=== PATIENT | female | born 1995 | race Caucasian/White ===

== ENCOUNTER 2017-12-08 01:20 | Emergency (ER) | payer BC, OTHER ==
[~2017-12-08] VITALS: Ht 162.6 cm; Wt 59.0 kg
--- NOTE | ~2017-12-08 | EKG ---
[place] [address] [facility] [place] [address] ELECTROCARDIOGRAM REPORT Name: JAMES YU Room #: [facility] [id number] Admission: 12/08/17 Attend Phys: Discharge: 12/08/17 Date of : [birth year] Report #: [id number] THIS REPORT FOR: //name// [facility] ED Test Date: 2017-12-08 Test Time: 01:49:05 Pat Name: JAMES YU Department: Room: Gender: F Loan Reviewer: [id number] : 1995 Requested By: Ozzy Cortes Order Number: [id number] MD: Jerardo Hernandez Measurements Intervals [place] Rate: 145 P: 46 KS: 125 QRS: 6 QRSD: 84 T: -49 QT: 275 QTc: 427 Interpretive Statements Sinus tachycardia Otherwise normal tracing Baseline wander in lead(s) I,II,aVR No previous ECG available for comparison Electronically Signed On 12-08-2017 14:39:37 EMS EDUCATOR by Jerardo Hernandez [email or web address] <ELECTRONICALLY SIGNED> By: Jerardo Hernandez MD, [facility] 12/08/17 1439 0149 [id number] Jerardo Hernandez MD, FACC /EPI
[2017-12-08 02:45] LABS: AMP/METHAMP Negative (Negative); BARBITURATES Negative (Negative); BENZODIAZEPINES Negative (Negative); COCAINE Negative (Negative); METHADONE Negative (Negative); OPIATES Negative (Negative); PCP Negative (Negative)
== END 2017-12-08 04:34 | disposition home or self-care (01) ==
LOC: ER 01:20
PROVIDERS: Emergency Medicine
DX: F12.10 Cannabis abuse, uncomplicated (principal); R44.1 Visual hallucinations; F17.210 Nicotine dependence, cigarettes, uncomplicated